=== PATIENT | female | born 1950 | race Caucasian/White ===

== ENCOUNTER 2016-11-17 11:00 | Outpatient (RCR) | payer MEDICARE, BC ==
[2013-06-03 07:35] VITALS: BP 119/64
[~2016-11-17 11:00] MED LIST: ASPIRIN E.C. 8181 M1 PO; GLUCOSAMINE CHO1 CA1 PO; LODINE 300300 MG/CAP PO; MULTIPLE VITAMI1 TAB PO; OMEGA 31000 MG PO; VITAMIN B12 PO; VITAMIN C PUR1000 MG PO; VITAMIN D35000 IU PO; ZESTORETIC 12.51 TA1 PO
== END 2016-12-07 08:00 | disposition home or self-care (01) ==
LOC: PT 11:00
DX: Z47.89 Encounter for other orthopedic aftercare (principal); Z96.642 Presence of left artificial hip joint

== ENCOUNTER 2017-03-21 09:34 | Emergency (ER) | payer MEDICARE, BC ==
[2017-03-21] MEDS ORDERED: VALIUM 2MG T2 MG/TAB PO (11:22)
[2017-03-21] MEDS ORDERED: ZOFRAN4 M2 PO (11:22)
[2017-03-21 11:31] VITALS: BP 120/74
== END 2017-03-21 11:30 | disposition home or self-care (01) ==
LOC: ED 09:34
DX: H81.10 Benign paroxysmal vertigo, unspecified ear (principal)
CPT/HCPCS: J2405; J3360

== ENCOUNTER → 2017-10-10 | Outpatient (CLI) | payer MEDICARE, BC ==
[~2017-10-10] MED LIST changes: +VALIUM 2MG T2 MG/TAB PO; +ZOFRAN4 M2 PO
== END ==
LOC: MAMMO 10:44
DX: Z12.31 Encounter for screening mammogram for malignant neoplasm of breast (principal)
CPT/HCPCS: G0202

== ENCOUNTER → 2017-10-17 | Outpatient (CLI) | payer MEDICARE, BC ==
[2017-10-17 07:40] LABS: EOS # 0.3 (0.04-0.40); EOS % 2.2 % (1.0-5.0); HEMATOCRIT 49.3 % (37.0-47.0); HEMOGLOBIN 17.3 g/dL (12.5-16.0); LYMPH# 2.8 (1.50-4.00); MEAN CELL VOLUME 85 fl (78-100); MEAN CORPUSCULAR HEMOGLOBIN 30 pg (27-31); MEAN CORPUSCULAR HGB CONC 35 g/dL (33-37); MEAN PLATELET VOLUME 10.5 fl (7.4-10.4); MONO # 0.7 (0.20-0.80); NEU # 7.9 (1.40-6.50); PLATELET COUNT 276 K/mm3 (130-400); RED BLOOD COUNT 5.78 M/mm3 (4.10-5.30); RED CELL DISTRIBUTION WIDTH 13.5 % (11.5-14.5); WHITE BLOOD COUNT 11.7 K/mm3 (4.8-10.8)
[2017-10-17 08:04] LABS: ALBUMIN 3.7 g/dL (3.5-5.0); BUN/CREATININE RATIO 24.7 (6.0-26.0); CALCIUM 9.7 mg/dL (8.4-10.2); POTASSIUM 4.3 mmol/L (3.6-5.0); TOTAL BILIRUBIN 0.7 mg/dL (0.2-1.3); TOTAL PROTEIN 6.5 g/dL (6.3-8.2)
== END ==
LOC: LAB 07:28
PROVIDERS: Nurse Practitioner Family
DX: Z00.00 Encounter for general adult medical examination without abnormal findings (principal); E78.2 Mixed hyperlipidemia; Z12.31 Encounter for screening mammogram for malignant neoplasm of breast; Z88.8 Allergy status to other drugs, medicaments and biological substances

== ENCOUNTER → 2018-04-19 | Outpatient (CLI) | payer MEDICARE, BC | LOC: RAD 09:51 | DX: M25.562 Pain in left knee (principal) ==

== ENCOUNTER → 2018-10-10 | Outpatient (CLI) | payer MEDICARE, BC ==
[2018-10-10 09:49] LABS: EOS # 0.1 (0.04-0.40); EOS % 2.1 % (1.0-5.0); HEMATOCRIT 46.7 % (37.0-47.0); HEMOGLOBIN 16.5 g/dL (12.5-16.0); LYMPH# 2.3 (1.50-4.00); MEAN CELL VOLUME 85 fl (78-100); MEAN CORPUSCULAR HEMOGLOBIN 30 pg (27-31); MEAN CORPUSCULAR HGB CONC 35 g/dL (33-37); MEAN PLATELET VOLUME 10.6 fl (7.4-10.4); MONO # 0.7 (0.20-0.80); NEU # 3.6 (1.40-6.50); PLATELET COUNT 248 K/mm3 (130-400); RED BLOOD COUNT 5.49 M/mm3 (4.10-5.30); RED CELL DISTRIBUTION WIDTH 13.9 % (11.5-14.5); WHITE BLOOD COUNT 6.8 K/mm3 (4.8-10.8)
[2018-10-10 10:06] LABS: ALBUMIN 4.5 g/dL (3.5-5.0); CALCIUM 10.2 mg/dL (8.4-10.2); POTASSIUM 4.6 mmol/L (3.6-5.0); TOTAL BILIRUBIN 0.5 mg/dL (0.2-1.3); TOTAL PROTEIN 7.1 g/dL (6.3-8.2)
== END ==
LOC: LAB 09:35
PROVIDERS: Family Medicine
DX: Z12.39 Encounter for other screening for malignant neoplasm of breast (principal); Z00.00 Encounter for general adult medical examination without abnormal findings; E78.2 Mixed hyperlipidemia

== ENCOUNTER → 2018-10-10 | Outpatient (CLI) | payer MEDICARE, BC | LOC: MAMMO 09:34 | DX: Z12.31 Encounter for screening mammogram for malignant neoplasm of breast (principal); Z00.00 Encounter for general adult medical examination without abnormal findings; E78.2 Mixed hyperlipidemia ==

== ENCOUNTER → 2019-04-04 | Outpatient (CLI) | payer MEDICARE, BC | LOC: RAD 12:00 | DX: E04.1 Nontoxic single thyroid nodule (principal) ==

== ENCOUNTER → 2019-10-15 | Outpatient (CLI) | payer MEDICARE, BC ==
[2019-10-15 09:35] LABS: EOS # 0.1 (0.04-0.40); EOS % 1.9 % (1.0-5.0); HEMATOCRIT 45.1 % (37.0-47.0); HEMOGLOBIN 15.6 g/dL (12.5-16.0); LYMPH# 1.6 (1.50-4.00); MEAN CELL VOLUME 84 fl (78-100); MEAN CORPUSCULAR HEMOGLOBIN 29 pg (27-31); MEAN CORPUSCULAR HGB CONC 35 g/dL (33-37); MEAN PLATELET VOLUME 10.8 fl (7.4-10.4); MONO # 0.5 (0.20-0.80); NEU # 4.1 (1.40-6.50); PLATELET COUNT 229 K/mm3 (130-400); RED BLOOD COUNT 5.35 M/mm3 (4.10-5.30); RED CELL DISTRIBUTION WIDTH 13.3 % (11.5-14.5); WHITE BLOOD COUNT 6.3 K/mm3 (4.8-10.8)
[2019-10-15 09:41] LABS: ALBUMIN 4.1 g/dL (3.4-4.8); POTASSIUM 4.1 mmol/L (3.5-5.1)
[2019-10-15 09:44] LABS: TOTAL PROTEIN 6.7 g/dL (6.2-8.1)
[2019-10-15 09:46] LABS: TOTAL BILIRUBIN 0.4 mg/dL (0.2-1.2)
== END ==
LOC: LAB 09:15
PROVIDERS: Family Medicine
DX: Z00.00 Encounter for general adult medical examination without abnormal findings (principal); Z12.31 Encounter for screening mammogram for malignant neoplasm of breast; E78.2 Mixed hyperlipidemia

== ENCOUNTER → 2019-10-15 | Outpatient (CLI) | payer MEDICARE, BC | LOC: MAMMO 09:14 | DX: Z12.31 Encounter for screening mammogram for malignant neoplasm of breast (principal); N64.89 Other specified disorders of breast ==

== ENCOUNTER → 2019-10-17 | Outpatient (CLI) | payer MEDICARE, BC | LOC: RAD 14:48 | DX: R92.8 Other abnormal and inconclusive findings on diagnostic imaging of breast (principal) ==

== ENCOUNTER → 2020-04-20 | Outpatient (CLI) | payer MEDICARE ==
[2020-04-20 11:12] LABS: URINE APPEARANCE CLOUDY; URINE BILIRUBIN NEGATIVE (NEGATIVE); URINE BLOOD 50 ery/uL (NEGATIVE); URINE COLOR YELLOW; URINE GLUCOSE NEGATIVE (NEGATIVE); URINE KETONE NEGATIVE (NEGATIVE); URINE LEUKOCYTE ESTERASE NEGATIVE (NEGATIVE); URINE NITRATE NEGATIVE (NEGATIVE); URINE PROTEIN(semi-quant) TRACE mg/dL (NEGATIVE); URINE UROBILINOGEN NORMAL (NORMAL); URINE WBC 0-1 /hpf (0-3)
== END ==
LOC: LAB 10:25
PROVIDERS: Nurse Practitioner
DX: R10.9 Unspecified abdominal pain (principal)

== ENCOUNTER → 2020-04-30 | Outpatient (CLI) | payer MEDICARE ==
[2020-04-30 10:45] LABS: URINE COLOR YELLOW
[2020-04-30 10:46] LABS: URINE APPEARANCE CLEAR; URINE BILIRUBIN NEGATIVE (NEGATIVE); URINE BLOOD TRACE (NEGATIVE); URINE GLUCOSE NEGATIVE (NEGATIVE); URINE KETONE NEGATIVE (NEGATIVE); URINE LEUKOCYTE ESTERASE NEGATIVE (NEGATIVE); URINE NITRATE NEGATIVE (NEGATIVE); URINE PROTEIN(semi-quant) NEGATIVE (NEGATIVE); URINE UROBILINOGEN NORMAL (NORMAL); URINE WBC 0-1 /hpf (0-3)
== END ==
LOC: LAB 09:55
PROVIDERS: Family Medicine
DX: R10.9 Unspecified abdominal pain (principal)

== ENCOUNTER → 2020-10-20 | Outpatient (CLI) | payer MEDICARE | LOC: MAMMO 08:43 | DX: Z12.31 Encounter for screening mammogram for malignant neoplasm of breast (principal) ==

== ENCOUNTER → 2021-05-25 | Outpatient (CLI) | payer MEDICARE, BC ==
[~2021-05-25] MED LIST changes: +ALEVE220 M1 PO; +CALCIUM500 M1 PO; +HYDROCHLOROTH12.5 M2 PO; +MACROBID 1100 MG/CAP PO; +MASON NATURAL L20 MG PO; +ZYRTEC10 M3 PO
== END ==
LOC: RAD 09:28
DX: R07.81 Pleurodynia (principal)

== ENCOUNTER → 2021-06-14 | Outpatient (CLI) | payer MEDICARE, BC | LOC: RAD 15:00 | DX: M47.812 Spondylosis without myelopathy or radiculopathy, cervical region (principal); M43.6 Torticollis ==

== ENCOUNTER → 2021-08-17 | Outpatient (CLI) | payer MEDICARE, BC | LOC: LAB 11:02 | DX: N39.0 Urinary tract infection, site not specified (principal) ==

== ENCOUNTER 2021-08-20 18:32 | Emergency (ER) | payer MEDICARE, BC ==
[~2021-08-20] VITALS: Ht 172.7 cm; Wt 95.5 kg
[~2021-08-20 18:32] MED LIST changes: -ALEVE220 M1 PO; -CALCIUM500 M1 PO; -HYDROCHLOROTH12.5 M2 PO; -MACROBID 1100 MG/CAP PO; -MASON NATURAL L20 MG PO; -ZYRTEC10 M3 PO
[2021-08-20] MEDS ORDERED: MACROBID 1100 MG/CAP PO (19:00)
[2021-08-20] MEDS ORDERED: ALEVE220 M1 PO (19:02)
[2021-08-20] MEDS ORDERED: ZYRTEC10 M3 PO (19:02)
[2021-08-20] MEDS ORDERED: CALCIUM500 M1 PO (19:03)
[2021-08-20] MEDS ORDERED: MASON NATURAL L20 MG PO (19:03)
[2021-08-20] MEDS ORDERED: HYDROCHLOROTH12.5 M2 PO (20:21)
[2021-08-20 20:39] VITALS: BP 131/91
== END 2021-08-20 20:39 | disposition home or self-care (01) ==
LOC: ED 18:32
DX: I10 Essential (primary) hypertension (principal)

== ENCOUNTER → 2021-08-20 | Outpatient (CLI) | payer MEDICARE, BC | LOC: RAD 11:46 | DX: M54.50 Low back pain, unspecified (principal); Z96.643 Presence of artificial hip joint, bilateral ==

== ENCOUNTER → 2021-08-31 | Outpatient (CLI) | payer MEDICARE, BC ==
[~2021-08-31] MED LIST changes: +ALEVE220 M1 PO; +CALCIUM500 M1 PO; +HYDROCHLOROTH12.5 M2 PO; +MACROBID 1100 MG/CAP PO; +MASON NATURAL L20 MG PO; +ZYRTEC10 M3 PO
== END ==
LOC: RAD 12:00
DX: J32.0 Chronic maxillary sinusitis (principal)

== ENCOUNTER → 2021-10-27 | Outpatient (CLI) | payer MEDICARE, BC | LOC: MAMMO 10-21 09:15 | DX: Z12.31 Encounter for screening mammogram for malignant neoplasm of breast (principal); N63.20 Unspecified lump in the left breast, unspecified quadrant ==

== ENCOUNTER → 2021-11-19 | Outpatient (CLI) | payer MEDICARE, BC ==
[2021-11-19 09:06] LABS: BASO # 0.06 K/mm3 (0.02-0.10); HEMATOCRIT 50.4 % (37.0-47.0); HEMOGLOBIN 16.8 g/dL (12.5-16.0); LYMPH# 2.06 K/mm3 (1.50-4.00); MEAN CELL VOLUME 88 fl (78-100); MEAN CORPUSCULAR HEMOGLOBIN 29 pg (27-31); MEAN CORPUSCULAR HGB CONC 33 g/dL (33-37); MEAN PLATELET VOLUME 10.5 fl (7.4-10.4); MONO # 0.57 K/mm3 (0.20-0.80); NEU # 3.56 K/mm3 (1.40-6.50); PLATELET COUNT 238 K/mm3 (130-400); RED BLOOD COUNT 5.72 M/mm3 (4.10-5.30); RED CELL DISTRIBUTION WIDTH 13.3 % (11.5-14.5); WHITE BLOOD COUNT 6.3 K/mm3 (4.8-10.8)
[2021-11-19 09:08] LABS: ALBUMIN 3.9 g/dL (3.4-4.8); POTASSIUM 4.6 mmol/L (3.5-5.1)
[2021-11-19 09:09] LABS: CALCIUM 9.8 mg/dL (8.3-10.5)
[2021-11-19 09:10] LABS: TOTAL PROTEIN 6.7 g/dL (6.2-8.1)
[2021-11-19 09:12] LABS: TOTAL BILIRUBIN 0.4 mg/dL (0.2-1.2)
== END ==
LOC: LAB 08:35
PROVIDERS: Family Medicine
DX: Z00.00 Encounter for general adult medical examination without abnormal findings (principal); E04.1 Nontoxic single thyroid nodule; E78.5 Hyperlipidemia, unspecified; E55.9 Vitamin D deficiency, unspecified

== ENCOUNTER → 2021-12-22 | Outpatient (CLI) | payer MEDICARE, BC | LOC: LAB 08:49 | DX: Z00.00 Encounter for general adult medical examination without abnormal findings (principal); C39.9 Malignant neoplasm of lower respiratory tract, part unspecified; E78.5 Hyperlipidemia, unspecified; I10 Essential (primary) hypertension; E66.9 Obesity, unspecified; M19.90 Unspecified osteoarthritis, unspecified site; M81.0 Age-related osteoporosis without current pathological fracture; E04.1 Nontoxic single thyroid nodule; Z72.0 Tobacco use; E55.9 Vitamin D deficiency, unspecified; R73.9 Hyperglycemia, unspecified ==

== ENCOUNTER → 2022-10-08 | Outpatient (CLI) | payer MEDICARE, BC | LOC: LAB 16:42 | DX: B34.9 Viral infection, unspecified (principal); Z20.822 Contact with and (suspected) exposure to COVID-19 ==

== ENCOUNTER 2022-11-18 10:57 | Outpatient (RCR) | payer MEDICARE, BC | END 2022-12-13 | disposition home or self-care (01) | LOC: PT | DX: M79.605 Pain in left leg (principal) ==

== ENCOUNTER → 2023-01-31 | Outpatient (CLI) | payer MEDICARE, BC ==
[2023-01-31 09:26] LABS: ALBUMIN 3.9 g/dL (3.4-4.8); POTASSIUM 4.4 mmol/L (3.5-5.1)
[2023-01-31 09:27] LABS: CALCIUM 9.4 mg/dL (8.3-10.5)
[2023-01-31 09:30] LABS: TOTAL BILIRUBIN 0.5 mg/dL (0.2-1.2)
== END ==
LOC: LAB 08:54
PROVIDERS: Family Medicine
DX: I10 Essential (primary) hypertension (principal); E55.9 Vitamin D deficiency, unspecified; E78.5 Hyperlipidemia, unspecified

== ENCOUNTER → 2023-02-16 | Outpatient (CLI) | payer MEDICARE, BC | LOC: MAMMO 08:30 | DX: Z12.31 Encounter for screening mammogram for malignant neoplasm of breast (principal) ==

== ENCOUNTER → 2023-02-16 | Outpatient (CLI) | payer MEDICARE, BC | LOC: RAD 08:35 → MAMMO 09:15 | DX: M81.0 Age-related osteoporosis without current pathological fracture (principal); Z78.0 Asymptomatic menopausal state ==

== ENCOUNTER → 2023-03-03 | Outpatient (CLI) | payer MEDICARE, BC | LOC: CARDREHAB 03-01 16:09 | DX: E78.5 Hyperlipidemia, unspecified (principal); I10 Essential (primary) hypertension | CPT/HCPCS: A9500; J2785 ==

== ENCOUNTER → 2023-07-18 | Outpatient (CLI) | payer MEDICARE, BC ==
[~2023-07-18] MED LIST changes: +ASPIRIN E.C. 8181 MG PO; +ATORVASTATIN CA20 MG PO; +CHONDROITIN PO; +CO Q-10200 MG PO; +DICLOFENAC SOD50 MG PO; +GLUCOSAMINE PO; +GLUCOSAMINE1000 MG PO; +PHARMASSURE ZIN50 MG PO; +ZESTRIL5 M1 PO; +vitamin d3 PO
[2023-07-18 10:57] LABS: URINE APPEARANCE CLEAR; URINE BILIRUBIN NEGATIVE (NEGATIVE); URINE BLOOD 250 ery/uL (NEGATIVE); URINE COLOR YELLOW; URINE GLUCOSE NEGATIVE (NEGATIVE); URINE KETONE 1+ (NEGATIVE); URINE LEUKOCYTE ESTERASE NEGATIVE (NEGATIVE); URINE MUCUS PRESENT (NOT PRESENT); URINE NITRATE NEGATIVE (NEGATIVE); URINE PROTEIN(semi-quant) TRACE (NEGATIVE); URINE UROBILINOGEN NORMAL (NORMAL); URINE WBC 0-1 /hpf (0-3)
== END ==
LOC: LAB 10:14
PROVIDERS: Internal Medicine
DX: N39.0 Urinary tract infection, site not specified (principal)

== ENCOUNTER 2023-09-13 07:52 | Outpatient (RCR) | payer MEDICARE, BC ==
[~2023-09-13 07:52] MED LIST changes: +BACTRIM DS TAB1 EACH PO
[2023-09-20] MEDS ORDERED: MECLIZINE PO (17:31)
== END 2023-10-12 | disposition home or self-care (01) ==
LOC: PT
DX: M25.561 Pain in right knee (principal); Z96.651 Presence of right artificial knee joint

== ENCOUNTER 2023-10-13 08:00 | Outpatient (RCR) | payer MEDICARE, BC ==
[~2023-10-13 08:00] MED LIST changes: +MECLIZINE PO
== END 2023-10-24 14:50 | disposition home or self-care (01) ==
LOC: PT 08:00
DX: M25.561 Pain in right knee (principal); Z96.651 Presence of right artificial knee joint

== ENCOUNTER → 2023-11-14 | Outpatient (CLI) | payer MEDICARE, BC ==
[2023-11-14 15:04] LABS: URINE APPEARANCE CLEAR (CLEAR); URINE BILIRUBIN NEGATIVE (NEGATIVE); URINE BLOOD 1+ (NEGATIVE); URINE COLOR YELLOW (YELLOW); URINE GLUCOSE NEGATIVE (NEGATIVE); URINE KETONE NEGATIVE (NEGATIVE); URINE LEUKOCYTE ESTERASE NEGATIVE (NEGATIVE); URINE NITRATE NEGATIVE (NEGATIVE); URINE PROTEIN(semi-quant) NEGATIVE (NEGATIVE); URINE WBC 0-1 /hpf (0-3)
== END ==
LOC: LAB 13:59
PROVIDERS: Internal Medicine
DX: R35.0 Frequency of micturition (principal)

== ENCOUNTER → 2023-11-27 | Outpatient (CLI) | payer MEDICARE, BC | LOC: RAD 07:54 | DX: E04.1 Nontoxic single thyroid nodule (principal) ==

== ENCOUNTER → 2024-01-30 | Outpatient (CLI) | payer MEDICARE, BC ==
[2024-01-30 10:08] LABS: BASO # 0.04 K/mm3 (0.02-0.10); HEMATOCRIT 49.3 % (37.0-47.0); HEMOGLOBIN 16.3 g/dL (12.5-16.0); LYMPH# 1.96 K/mm3 (1.50-4.00); MEAN CELL VOLUME 86 fl (78-100); MEAN CORPUSCULAR HEMOGLOBIN 28 pg (27-31); MEAN CORPUSCULAR HGB CONC 33 g/dL (33-37); MEAN PLATELET VOLUME 10.4 fl (7.4-10.4); MONO # 0.51 K/mm3 (0.20-0.80); NEU # 3.89 K/mm3 (1.40-6.50); PLATELET COUNT 233 K/mm3 (130-400); RED BLOOD COUNT 5.75 M/mm3 (4.10-5.30); RED CELL DISTRIBUTION WIDTH 14.8 % (11.5-14.5); WHITE BLOOD COUNT 6.4 K/mm3 (4.8-10.8)
[2024-01-30 10:14] LABS: ALBUMIN 4.1 g/dL (3.4-4.8)
[2024-01-30 10:15] LABS: CALCIUM 10.6 mg/dL (8.3-10.5)
[2024-01-30 10:17] LABS: TOTAL PROTEIN 6.6 g/dL (6.2-8.1)
[2024-01-30 10:18] LABS: TOTAL BILIRUBIN 0.5 mg/dL (0.2-1.2)
[2024-01-30 10:23] LABS: MAGNESIUM 1.93 mg/dL (1.60-2.60)
[2024-01-30 22:36] LABS: FOLATE (FOLIC ACID) 18.1 ng/mL (2.0-20.0)
== END ==
LOC: LAB 09:47
PROVIDERS: Internal Medicine
DX: Z12.11 Encounter for screening for malignant neoplasm of colon (principal); I10 Essential (primary) hypertension; M81.0 Age-related osteoporosis without current pathological fracture; E78.5 Hyperlipidemia, unspecified; E55.9 Vitamin D deficiency, unspecified; E04.1 Nontoxic single thyroid nodule; D64.9 Anemia, unspecified

== ENCOUNTER → 2024-02-01 | Outpatient (CLI) | payer MEDICARE, BC | LOC: LAB 10:31 | DX: I10 Essential (primary) hypertension (principal); E78.5 Hyperlipidemia, unspecified; E55.9 Vitamin D deficiency, unspecified; E04.1 Nontoxic single thyroid nodule; M81.0 Age-related osteoporosis without current pathological fracture; D64.9 Anemia, unspecified; Z12.11 Encounter for screening for malignant neoplasm of colon ==

== ENCOUNTER → 2024-02-26 | Outpatient (CLI) | payer MEDICARE, BC | LOC: MAMMO 13:19 | DX: Z12.31 Encounter for screening mammogram for malignant neoplasm of breast (principal) ==

== ENCOUNTER → 2025-02-12 | Outpatient (CLI) | payer MEDICARE, BC | LOC: LAB 11:09 | DX: Z12.11 Encounter for screening for malignant neoplasm of colon (principal); M81.0 Age-related osteoporosis without current pathological fracture; D64.9 Anemia, unspecified; I10 Essential (primary) hypertension; E78.5 Hyperlipidemia, unspecified; E55.9 Vitamin D deficiency, unspecified ==